=== PATIENT | female | born 1995 | race Hispanic/Latino ===

== ENCOUNTER 2018-08-11 08:44 | Emergency (ER) | payer OTHER, SELFPAY | END 2018-08-11 11:01 | disposition home or self-care (01) | LOC: ERS 08:44 | DX: H60.92 Unspecified otitis externa, left ear (principal) | CPT/HCPCS: 87081; 87430; 99283 ==

== ENCOUNTER 2019-04-29 13:05 | Emergency (ER) | payer SELFPAY ==
[2019-04-29 13:29] LABS: #Eosinphils 0.2 thou/uL (0.0-0.7); #Lymphocytes 2.8 thou/uL (1.20-3.40); #Monocytes 0.5 thou/uL (0.11-0.59); #Neutrophils 6.9 thou/uL (1.40-6.50); %Basophils 0.3 % (0.0-1.0); %Eosinophils 2.2 % (0.0-10.0); %Lymphocytes 27.1 % (21.0-51.0); %Monocytes 4.7 % (0.0-10.0); %Neutrophils 65.7 % (42.0-75.0); Hemoglobin 11.3 g/dL (12.0-16.0); Mean Corpuscular HGB CONC 31.5 g/dL (32.0-36.0); Mean Corpuscular Hemoglobin 26.8 pg (27.0-31.0); Mean Corpuscular Volume 85.3 fL (78.0-98.0); Mean Platelet Volume 7.1 fL (7.4-10.4); Platelet Count 408 thou/uL (130-400); RBC Distribution Width 13.7 % (11.5-14.5); White Blood Cell (WBC) Count 10.4 thou/uL (4.8-10.8)
--- NOTE | 2019-04-29 15:12 | ULT ---
ULTRASOUND PELVIC ULTRASOUND TRANSVAGINAL DOPPLER DUPLEX: DATE: 04/29/2019 HISTORY: 23-year-old female with pelvic pain TECHNIQUE: Transabdominal transducer and endovaginal transducer used to visualize intrapelvic contents with mari scale, color-flow, and spectral analysis. FINDINGS: Uterus is retroverted/retroflexed, and measures 12 x 5 x 5.5 cm. At the uterine fundus, the endometrial stripe is severely thickened to approximately 25 mm, and has h eterogeneous intermediate echogenicity. Some of this could represent decidual reaction while some of this could represent blood clots. Within this, there is a tiny 0.4 x 0.3 cm cystic structure. It i s too small to visualize yolk sac or embryonic pole. According to the carry out clerk, active bleeding was witnessed within the abnormal endometrium at the fundus. No free fluid in the cul-de-sac. Right ovary: 3.4 x 2.0 x 2.1 cm. Left ovary: 2.8 x 2.3 x 1.7 cm. Blood flow demonstrated in both ovaries by Doppler. No corpus luteal cyst identified. IMPRESSION: Abnormally thickened and heterogeneous endometrium. This could represent blood clots within the endom etrium. Recommend serial follow-up serum beta hCG levels, and if indicated, follow-up pelvic and transvaginal ultrasound.
--- NOTE | 2019-04-29 20:46 | CON ---
DATE OF CONSULTATION: 04/29/2019 LOCATION OF SERVICE: Emergency room, bed 6. CONSULTING PHYSICIAN: Dr. Lloyd, emergency department. CHIEF COMPLAINT: Vaginal bleeding. HISTORY OF PRESENT ILLNESS: This is a 23-year-old, G3, P2-0-0-2, at 10 weeks and 5 days by last menstrual period. She has been followed in the clinic for this and was seen 5 days ago for an ultrasound that did not show an intrauterine . At that time, her hCG level was 13,800. She reports that this morning she started having vaginal bleeding with lower abdominal cramping in the suprapubic location. She denies any severe abdominal pain, nausea, vomiting , or other concerns. REVIEW OF SYSTEMS: Negative for head, eyes, ears, nose, throat, cardiovascular, respiratory, GI, , neuropsych, musculoskeletal, skin, or constitutional symptoms other than mentioned above. PAST MEDICAL HISTORY: None. PAST SURGICAL HISTORY: None. MEDICATIONS: vitamins. ALLERGIES: NO KNOWN DRUG ALLERGIES. SOCIAL HISTORY: Negative for tobacco, alcohol, or drug abuse. OB HISTORY: Two prior term vaginal deliveries. FAMILY HISTORY: Noncontributory. PHYSICAL EXAMINATION: VITAL SIGNS: Afebrile with normal vital signs. GENERAL: Awake and alert, in no acute distress. CHEST: Nonlabored. ABDOMEN: Obese, soft, and nontender to palpation. No masses, rebound, or guarding. PELVIC: Performed by resident revealed a closed cervical os with no active bleeding. Small amount of bright red blood in the vault. LABORATORY DATA: HCG level 10,889. Hemoglobin 11.3 and hematocrit 35.8. IMAGING: Pelvic ultrasound revealed a thickened heterogeneous endometrial stripe measuring about 2.5 cm. There is a tiny 0.4 x 0.3 cm cystic structure, but no visible yolk sac or pole. There were no adnexal masses and no free fluid seen. ASSESSMENT AND PLAN: A 23-year-old, G3, P2-0-0-2, likely with an early miscarriage given her drop in hCG of approximately 22%. Ectopic is unlikely, although cannot be excluded; therefore, she needs to follow her hCG levels down and I recommend she follow up in the clinic in 2 days for repeat hCG level. If she does not complete her miscarriage, she can be offered medical or surgical management at that time. All questions were answered, and the patient voiced understanding. She was instructed to return if she is soaking a pad completely in less than an hour as well as for other signs of ectopic . Job ID: [id number] MTDD
== END 2019-04-29 16:33 | disposition home or self-care (01) ==
LOC: ERS 13:05
DX: O20.9 Hemorrhage in early pregnancy, unspecified (principal); Z3A.08 8 weeks gestation of pregnancy
CPT/HCPCS: 36415; 76856; 84702; 85025; 86900; 86901

== ENCOUNTER 2019-05-04 13:00 | Emergency (ER) | payer SELFPAY ==
[2019-05-04 14:09] LABS: #Eosinphils 0.3 thou/uL (0.0-0.7); #Lymphocytes 2.7 thou/uL (1.20-3.40); #Monocytes 0.4 thou/uL (0.11-0.59); #Neutrophils 7.3 thou/uL (1.40-6.50); %Basophils 0.2 % (0.0-1.0); %Eosinophils 2.5 % (0.0-10.0); %Lymphocytes 25.2 % (21.0-51.0); %Monocytes 4.1 % (0.0-10.0); Hemoglobin 10.8 g/dL (12.0-16.0); Mean Corpuscular HGB CONC 32.9 g/dL (32.0-36.0); Mean Corpuscular Volume 85.1 fL (78.0-98.0); Platelet Count 355 thou/uL (130-400); RBC Distribution Width 13.4 % (11.5-14.5); Red Blood Cell (RBC) Count 3.85 mill/uL (4.20-5.40); White Blood Cell (WBC) Count 10.7 thou/uL (4.8-10.8)
[2019-05-04 14:28] LABS: ALT (SGPT) 22 U/L (8-55); AST (SGOT) 18 U/L (5-34); Alkaline Phosphatase 84 U/L (40-110); Anion Gap 11 mmol/L (10-20); BUN (Urea Nitrogen) 12 mg/dL (7.0-18.7); Bilirubin, Total 0.2 mg/dL (0.2-1.2); Calc. Creatinine Clearance 0 mL/min (70-130); Calcium 9.5 mg/dL (7.8-10.44); Carbon Dioxide 26 mmol/L (22-29); Chloride 104 mmol/L (98-107); Estimated GFR-MDRD Greater than 90; Globulin 3.3 g/dL (2.4-3.5); Glucose 94 mg/dL (70-105); Potassium 3.8 mmol/L (3.5-5.1); Protein, Total 7.3 g/dL (6.0-8.3); Sodium 137 mmol/L (136-145)
[2019-05-04] MEDS ORDERED: Fentanyl 100 MCG/2 ML VIAL ONE (15:02)
[2019-05-04] MEDS ORDERED: Ondansetron PF 4 MG/2 ML Vial ONE (15:03)
[2019-05-04 15:32] LABS: BHCG - Serum POSITIVE (NEGATIVE); Pregs Control Background? CLEAR/WHITE (CLR/WHITE); Pregs Control Bar Appear? YES (CONTROL BAR)
[2019-05-04 15:43] LABS: Bacteria/HPF None Seen HPF (None Seen); Bilirubin Negative (Negative); Blood, Urine 3+ (Negative); Clarity Turbid (Clear); Glucose, Urine (Dipstick) Normal (Negative); Leukocyte 25 Leu/uL (Negative); Nitrite Negative (Negative); Protein, Urine (Dipstick) 20 mg/dL (Neg-Trace); RBC/HPF Greater than 50 HPF (0-3); Squamous Epithelial 0-3 HPF (0-3); Urobilinogen Normal mg/dL (Less than 2); WBC/HPF 0-3 HPF (0-3)
[2019-05-04 15:49] LABS: CK (CPK) 84 U/L (29-168); Lipase 10 U/L (8-78)
--- NOTE | 2019-05-04 16:10 | ULT ---
EXAM: Pelvic ultrasound HISTORY: Vaginal bleeding COMPARISON: None TECHNIQUE: Multiple grayscale and color Doppler images were obtained in a transabdominal and transvag inal pelvic ultrasound. Spectral analysis of the Doppler waveforms of the ovaries were performed. FINDINGS: CERVIX: No evidence of nabothian cysts. UTERUS: Normal in size without focal abnormality. ENDOMETRIAL STRIPE: 15 mm. A trace amount free fluid is seen in the pelvis. RIGHT OVARY: Normal flow without focal mass. LEFT OVARY: Normal flow without focal mass. IMPRESSION: No significant pelvic abnormality
[2019-05-04] MEDS ORDERED: Ketorolac Tromethamine 30 MG/ML VIAL ONE (17:13)
== END 2019-05-04 18:20 | disposition home or self-care (01) ==
LOC: ERS 13:00
DX: O03.9 Complete or unspecified spontaneous abortion without complication (principal)
CPT/HCPCS: 36415; 76856; 80053; 81003; 81015; 82550; 83690; 84702; 84703; 85025; 96361; 96374; 96375; J1885; J2405; J3010

== ENCOUNTER 2022-03-21 08:26 | Outpatient (CLI) | payer OTHER | END 2022-03-21 08:27 | disposition home or self-care (01) | LOC: BICULT 08:26 | PROVIDERS: ATTEND Family Medicine | DX: Z34.82 Encounter for supervision of other normal pregnancy, second trimester (principal) | CPT/HCPCS: 76805 ==